=== PATIENT | female | born 1980 | race Caucasian/White ===

== ENCOUNTER 2018-11-10 15:13 | Outpatient (CLI) | END 2018-11-10 15:14 | disposition home or self-care (01) | LOC: RHC-LAB 15:13 → FCC-LAB 15:14 | PROVIDERS: ATTEND Family Medicine | DX: E03.9 Hypothyroidism, unspecified (principal); R53.81 Other malaise | CPT/HCPCS: 36415; 80053; 84439; 84443; 84480; 85025 ==